=== PATIENT | female | born 1940 | race Caucasian/White ===

== ENCOUNTER 2016-10-19 06:16 | Emergency (ER) | payer MEDICARE ==
[~2016-10-19] VITALS: Ht 167.6 cm; Wt 79.8 kg
--- NOTE | ~2016-10-19 | CR72 ---
[facility] A Service of [facility] RADIOLOGY TEXT RESULTS PATIENT: MONICA SALES LOCATION: [facility] : 38 UNIT #: [id number] AGE: [address]: Praveen Garcia MD SEX: F ORDER DR: [id number] [facility] [address]. [place], [place] [address] [id number] MR#: [id number] Acc #: [id number] NAME: MONICA SALES. : 1940 SEX: F STUDY DATE/TIME: 10/19/2016 UNIT: [facility] ROOM: STUDY DESCRIPTION: CR Chest Single View Portable Attending Physician: Praveen Garcia M.D. Ordering Physician: Ed Dwaine Mckinney M.D. Primary Care Physician: Angelina Acosta M.D. MEDICAL IMAGING REPORT This report is preliminary unless electronic signature is present EXAM Chest portable 10/19/2016 0759 hours. HISTORY 76-year-old woman with heart racing this morning with nausea. COMPARISON None FINDINGS Single portable upright view demonstrates heart size within normal limits. There is a tortuous ascending and descending thoracic aorta. The pulmonary vascularity is normal. The lungs are well expanded. There are calcified granulomatous changes. There is no evidence of acute pulmonary density or pleural effusion. There is calcification of the anterior costochondral cartilage resulting in densities at both bases. IMPRESSION Normal heart size with mildly tortuous aorta. Pulmonary vascularity is normal. The lungs are clear. No effusions are seen. Dictated by... Valeria Lucio M.D. THIS IS AN ELECTRONICALLY VERIFIED REPORT Valeria Lucio M.D. at 10/20/2016 9:26 AM Rodger TD: 10/19/2016 16:46 JOB #: [id number] MEDICAL IMAGING REPORT [facility] A Service of [facility] RADIOLOGY TEXT RESULTS PATIENT: MONICA SALES LOCATION: [facility] : 38 UNIT #: [id number] AGE: [address]: Praveen Garcia MD SEX: F ORDER DR: Page 1 of 1 COPY
--- NOTE | ~2016-10-19 | EKG ---
PATIENT: MONICA SALES UNIT #: [id number] Ventricular Rate: 82 BPM Atrial Rate: 82 BPM P-R Interval: 170 ms QRS Duration: 92 ms Q-T Interval: 386 ms QTC Calculation(Bezet): 450 ms P [place]: 71 degrees Calculated R [place]: -38 degrees Calculated T [place]: 64 degrees Diagnosis Line: Normal sinus rhythm Diagnosis Line: Left axis deviation Diagnosis Line: Incomplete right bundle branch block Diagnosis Line: Abnormal ECG Diagnosis Line: No previous ECGs available Diagnosis Line: Confirmed by JAIRON LYONS MD ([id number]) on Diagnosis Line: 10/19/2016 8:43:42 AM INTERPRETING MD: SERENA SAAB
[~2016-10-19 06:16] MED LIST: MULTI-VITAMIN1 TAB; SYNTHROID; ZOCOR
[2016-10-19 07:55] LABS: BASOPHIL% 0.6 % (0-2.5); EOSINOPHIL# 0.1 X10e3 (0-0.7); EOSINOPHIL% 1.1 % (0.0-7.0); HEMATOCRIT 41.4 % (35.0-45.0); HEMOGLOBIN 14.1 gm/dL (12.0-16.0); LYMPHOCYTE# 1.1 X10e3 (1.0-3.5); LYMPHOCYTE% 14.2 % (17.0-45.0); MEAN CELL VOLUME 87.6 FL (83-96); MEAN CORPUSCULAR HEMOGLOBIN 29.9 PG (28-34); MEAN CORPUSCULAR HGB CONC 34.1 g/dL (30-36); MONOCYTE# 0.6 X10e3 (0-1.0); MONOCYTE% 8.2 % (3.0-12.0); NEUTROPHIL# 5.8 X10e3 (1.5-7.1); NEUTROPHIL% 75.9 % (40-75); PLATELET COUNT 297 X10e3 (140-420); RED BLOOD COUNT 4.72 X10e (3.90-5.30); RED CELL DISTRIBUTION WIDTH 12.5 % (11.0-15.5); WHITE BLOOD COUNT 7.6 X10e3 (4.0-10.5)
[2016-10-19 07:56] LABS: DIFF IND NO
[2016-10-19 08:11] LABS: PARTIAL THROMBOPLASTIN TIME 26.9 SECONDS (23.5-31.3); PROTHROMBIN TIME (PATIENT) 10.6 SECONDS (10.0-11.7)
[2016-10-19 08:21] LABS: ALKALINE PHOSPHATASE 79 U/L (32-92); ALT (SGPT) 17 U/L (10-40); AST (SGOT) 23 U/L (10-42); BILIRUBIN, DIRECT <0.1 mg/dL (0.0-0.2); BILIRUBIN,INDIRECT 0.4 mg/dL (0.0-0.9); BILIRUBIN,TOTAL 0.5 mg/dL (0.2-2.0); BLOOD UREA NITROGEN 15 mg/dL (9-23); BUN/CREATININE RATIO 16.66; CALCIUM SERUM 9.1 mg/dL (8.4-10.2); CARBON DIOXIDE 24 mmol/L (22-31); CHLORIDE 106 mmol/L (100-111); CREATININE SERUM 0.9 mg/dL (0.6-1.4); GLOM FILT RATE Estimated 61.7 mL/min (>60); GLUCOSE FASTING 114 mg/dL (70-110); POTASSIUM 3.5 mmol/L (3.5-5.1); PROTEIN TOTAL SERUM 6.9 g/dL (6.0-8.3); SODIUM 138 mmol/L (135-145)
[2016-10-19 08:27] LABS: POC - CKMB <1.0 ng/mL (0.0-7.9); POC - TROPONIN <0.05 ng/mL (<=0.05)
== END 2016-10-19 09:00 | disposition home or self-care (01) ==
LOC: CED 06:16
PROVIDERS: Emergency Medicine
DX: R00.2 Palpitations (principal); F41.9 Anxiety disorder, unspecified; Z79.899 Other long term (current) drug therapy
CPT/HCPCS: 36415; 71010; 80048; 80076; 82553; 84443; 84484; 85025; 85610; 85730; 93005; 99285